=== PATIENT | female | born 1975 | race Caucasian/White ===

== ENCOUNTER 2018-09-05 09:14 | Observation (INO) | payer MEDICAID ==
[2018-08-30 09:50] LABS: ADD MAN DIFF? NO
[2018-08-30 09:51] LABS: BASOPHILS % 0.4 % (0.0-2.0); EOSINOPHILS # 0.1 10^3/ul (0.0-0.5); EOSINOPHILS % 1.6 % (0.0-7.0); HEMATOCRIT 40.9 % (37.0-47.0); HEMOGLOBIN 13.5 g/dl (12.0-16.0); LYMPHOCYTES % 29.3 % (15.0-51.0); MEAN CORPUSCULAR HEMOGLOBIN 28.7 pg (29.0-33.0); MEAN CORPUSCULAR VOLUME 86.8 fl (82.0-101.0); MEAN PLATELET VOLUME 10.7 fl (7.4-10.4); MONOCYTE # 0.7 10^3/ul (0.3-0.9); MONOCYTES % 9.5 % (0.0-11.0); NEUTROPHIL # 4.1 10^3/ul (1.6-7.5); NEUTROPHILS % 58.8 % (39.0-77.0); PLATELET COUNT 230 10^3/UL (140-415); RED BLOOD COUNT 4.71 10^6/ul (4.20-5.40); RED CELL DISTRIBUTION WIDTH 11.7 % (11.5-14.5)
[2018-08-30 09:51] LABS: WHITE BLOOD COUNT 6.9 10^3/ul (4.8-10.8)
[2018-08-30 10:11] LABS: INR 0.92; PROTIME 12.5 Sec (11.9-14.9)
[2018-08-30 10:12] LABS: PARTIAL THROMBOPLASTIN TIME 26.5 Sec (23.0-35.0)
[2018-08-30 10:30] LABS: ALANINE AMINOTRANSFERASE 22 IU/L (13-69); ALBUMIN 4.3 g/dl (3.3-4.9); ALBUMIN/GLOBULIN RATIO 1.34; ALKALINE PHOSPHATASE 63 IU/L (42-121); ANION GAP 8 (5-13); ASPARTATE AMINO TRANSFERASE 25 IU/L (15-46); BILIRUBIN,INDIRECT 0.3 mg/dl (0-1.1); BILIRUBIN,TOTAL 0.3 mg/dl (0.2-1.3); BLOOD UREA NITROGEN 15 mg/dl (7-20); CALCIUM 9.8 mg/dl (8.4-10.2); CARBON DIOXIDE 28 mmol/L (21-31); CHLORIDE 104 mmol/L (97-110); CREATININE 0.63 mg/dl (0.44-1.00); Estimated GFR > 60 mL/min (>60); GLUCOSE 106 mg/dl (70-220); POTASSIUM 4.7 mmol/L (3.5-5.1); SODIUM 140 mmol/L (135-144); TOTAL PROTEIN 7.5 g/dl (6.1-8.1)
[~2018-09-05 09:14] MED LIST: CEFAZOLIN 2 GM/50 ML (PMX) 50 ML IVPB
[2018-09-05 09:49] LABS: ADD MAN DIFF? NO
[2018-09-05 10:09] LABS: ALANINE AMINOTRANSFERASE 22 IU/L (13-69); ALBUMIN/GLOBULIN RATIO 1.42; ALKALINE PHOSPHATASE 89 IU/L (42-121); ANION GAP 12 (5-13); ASPARTATE AMINO TRANSFERASE 24 IU/L (15-46); BILIRUBIN,INDIRECT 0.7 mg/dl (0-1.1); BILIRUBIN,TOTAL 0.7 mg/dl (0.2-1.3); BLOOD UREA NITROGEN 16 mg/dl (7-20); CALCIUM 9.8 mg/dl (8.4-10.2); CARBON DIOXIDE 27 mmol/L (21-31); CHLORIDE 103 mmol/L (97-110); CREATININE 0.62 mg/dl (0.44-1.00); Estimated GFR > 60 mL/min (>60); GLUCOSE 117 mg/dl (70-220); POTASSIUM 3.8 mmol/L (3.5-5.1); SODIUM 142 mmol/L (135-144); TOTAL PROTEIN 8.5 g/dl (6.1-8.1)
[2018-09-05 10:16] LABS: INR 0.93; PROTIME 12.6 Sec (11.9-14.9)
[2018-09-05 10:17] LABS: PARTIAL THROMBOPLASTIN TIME 26.9 Sec (23.0-35.0)
[2018-09-05 10:28] LABS: WHITE BLOOD COUNT 8.1 10^3/ul (4.8-10.8)
[2018-09-05 10:28] LABS: BASOPHIL # 0.1 10^3/ul (0.0-0.1); BASOPHILS % 0.6 % (0.0-2.0); EOSINOPHILS # 0.1 10^3/ul (0.0-0.5); EOSINOPHILS % 1.6 % (0.0-7.0); HEMATOCRIT 44.2 % (37.0-47.0); HEMOGLOBIN 14.8 g/dl (12.0-16.0); LYMPHOCYTES # 2.2 10^3/ul (0.8-2.9); LYMPHOCYTES % 27.5 % (15.0-51.0); MEAN CORPUSCULAR HEMOGLOBIN 29.1 pg (29.0-33.0); MEAN CORPUSCULAR HGB CONC 33.5 g/dl (32.0-37.0); MEAN CORPUSCULAR VOLUME 86.8 fl (82.0-101.0); MEAN PLATELET VOLUME 11.4 fl (7.4-10.4); MONOCYTE # 0.8 10^3/ul (0.3-0.9); MONOCYTES % 9.6 % (0.0-11.0); NEUTROPHIL # 4.9 10^3/ul (1.6-7.5); NEUTROPHILS % 60.3 % (39.0-77.0); PLATELET COUNT 263 10^3/UL (140-415); RED BLOOD COUNT 5.09 10^6/ul (4.20-5.40); RED CELL DISTRIBUTION WIDTH 11.7 % (11.5-14.5)
[2018-09-05] MEDS ORDERED: CEFAZOLIN 1 GM INJ (11:57)
[2018-09-05] MEDS ORDERED: FENTAnyl 50 MCG/ML VIAL (11:57)
[2018-09-05] MEDS ORDERED: PROPOFOL 20 ML (11:57)
[2018-09-05] MEDS ORDERED: ROCURONIUM 50 MG INJ (11:57)
[2018-09-05] MEDS ORDERED: NEOSTIGMINE 3 MG/3 ML SYRINGE (11:57)
[2018-09-05] MEDS ORDERED: GLYCOPYRROLATE 0.4 MG INJ (11:57)
[2018-09-05] MEDS ORDERED: MIDAZOLAM 1 MG/ML 2 ML INJ (11:58)
[2018-09-05] MEDS: ISOSULFAN BLUE 1% 5 ML INJ SC (12:24)
[2018-09-05] MEDS ORDERED: DEXAMETHASONE 4 MG/ML 5 ML INJ (12:36)
[2018-09-05] MEDS ORDERED: METOCLOPRAMIDE 10 MG INJ (12:36)
[2018-09-05] MEDS ORDERED: ONDANSETRON 4 MG INJ (12:36)
[2018-09-05] MEDS ORDERED: EPHEDrine SULFATE 50 MG/5 ML SYG (12:36)
[2018-09-05] MEDS ORDERED: KETOROLAC 30 MG INJ (12:36)
[2018-09-05] MEDS: D5W-0.45 NACL + KCL 20 MEQ 1,000 ML IV (13:32)
[2018-09-05] MEDS ORDERED: HYDROCODONE/APAP (5/325) TAB PO (14:00)
[2018-09-05] MEDS ORDERED: ONDANSETRON 4 MG INJ IV (14:00)
[2018-09-05] MEDS: HYDROmorphONE 1 MG/ML SYG SC (15:42)
[2018-09-05] MEDS ORDERED: GLUCOSE GEL 15 GRAM TUBE PO ×2 (16:30)
[2018-09-05] MEDS ORDERED: GLUCOSE GEL 15 GRAM TUBE BUCCAL (16:30)
[2018-09-05] MEDS ORDERED: DEXTROSE 50% 50 ML SYRINGE IV ×2 (16:30)
[2018-09-05] MEDS ORDERED: GLUCAGON 1 MG INJ IM (16:30)
[2018-09-05] MEDS: INSULIN ASPART [NOVOLOG] 3 ML PEN SC ×2 (17:55→21:37)
[2018-09-05] MEDS: metFORMIN 500 MG TAB PO (18:02)
[2018-09-05] MEDS: LORAZEPAM 1 MG TAB PO (18:02)
[2018-09-06] MEDS: ACCU-CHEK XX (02:00)
[2018-09-06 05:40] LABS: ADD MAN DIFF? NO
[2018-09-06 05:52] LABS: BASOPHILS % 0.2 % (0.0-2.0); LYMPHOCYTES # 1.2 10^3/ul (0.8-2.9); LYMPHOCYTES % 9.4 % (15.0-51.0); MEAN CORPUSCULAR HEMOGLOBIN 29.5 pg (29.0-33.0); MEAN CORPUSCULAR HGB CONC 34.2 g/dl (32.0-37.0); MEAN CORPUSCULAR VOLUME 86.2 fl (82.0-101.0); MEAN PLATELET VOLUME 11.5 fl (7.4-10.4); MONOCYTE # 0.8 10^3/ul (0.3-0.9); MONOCYTES % 6.1 % (0.0-11.0); NEUTROPHIL # 10.5 10^3/ul (1.6-7.5); NEUTROPHILS % 83.7 % (39.0-77.0); PLATELET COUNT 234 10^3/UL (140-415); RED BLOOD COUNT 4.41 10^6/ul (4.20-5.40); RED CELL DISTRIBUTION WIDTH 11.8 % (11.5-14.5)
[2018-09-06 05:52] LABS: WHITE BLOOD COUNT 12.5 10^3/ul (4.8-10.8)
[2018-09-06 06:35] LABS: ALANINE AMINOTRANSFERASE 26 IU/L (13-69); ALBUMIN 4.2 g/dl (3.3-4.9); ALBUMIN/GLOBULIN RATIO 1.44; ALKALINE PHOSPHATASE 74 IU/L (42-121); ANION GAP 8 (5-13); ASPARTATE AMINO TRANSFERASE 20 IU/L (15-46); BILIRUBIN,INDIRECT 0.6 mg/dl (0-1.1); BILIRUBIN,TOTAL 0.6 mg/dl (0.2-1.3); BLOOD UREA NITROGEN 15 mg/dl (7-20); CALCIUM 9.8 mg/dl (8.4-10.2); CARBON DIOXIDE 24 mmol/L (21-31); CHLORIDE 103 mmol/L (97-110); CREATININE 0.61 mg/dl (0.44-1.00); Estimated GFR > 60 mL/min (>60); GLUCOSE 134 mg/dl (70-220); MAGNESIUM 1.8 mg/dl (1.7-2.5); PHOSPHORUS 4.4 mg/dl (2.5-4.9); POTASSIUM 4.4 mmol/L (3.5-5.1); SODIUM 135 mmol/L (135-144); TOTAL PROTEIN 7.1 g/dl (6.1-8.1)
[2018-09-06 08:35] LABS: THYROID STIMULATING HORMONE 0.902 MIU/L (0.465-4.680)
[2018-09-06 08:53] LABS: D-DIMER 335.76 ng/ml (<460)
[2018-09-06] MEDS: metFORMIN 500 MG TAB PO ×2 (09:23→17:59)
[2018-09-06] MEDS: AMLODIPINE 10 MG TAB PO (09:24)
[2018-09-06] MEDS: INSULIN ASPART [NOVOLOG] 3 ML PEN SC ×4 (09:24→21:00)
[2018-09-06] MEDS: LINAGLIPTIN 5 MG TABLET PO (09:24)
[2018-09-06] MEDS ORDERED: HYDROCODONE/APAP (10/325) TAB PO (11:30)
[2018-09-06] MEDS ORDERED: DOCUSATE SODIUM 100 MG CAP PO (11:30)
[2018-09-06] MEDS ORDERED: GUAIFENESIN/CODEINE 5ML CUP PO (11:30)
[2018-09-06] MEDS: ENOXAPARIN 40 MG/0.4 ML SYG SC (12:22)
[2018-09-07] MEDS: ACETAMINOPHEN 325 MG TAB PO ×2 (01:41→13:59)
[2018-09-07] MEDS: ACCU-CHEK XX (01:44)
[2018-09-07 04:59] LABS: ADD MAN DIFF? NO
[2018-09-07 05:02] LABS: BASOPHIL # 0.1 10^3/ul (0.0-0.1); BASOPHILS % 0.4 % (0.0-2.0); EOSINOPHILS # 0.2 10^3/ul (0.0-0.5); EOSINOPHILS % 1.6 % (0.0-7.0); HEMATOCRIT 37.2 % (37.0-47.0); HEMOGLOBIN 12.6 g/dl (12.0-16.0); LYMPHOCYTES # 3.5 10^3/ul (0.8-2.9); LYMPHOCYTES % 28.7 % (15.0-51.0); MEAN CORPUSCULAR HEMOGLOBIN 29.2 pg (29.0-33.0); MEAN CORPUSCULAR HGB CONC 33.9 g/dl (32.0-37.0); MEAN CORPUSCULAR VOLUME 86.3 fl (82.0-101.0); MEAN PLATELET VOLUME 11.3 fl (7.4-10.4); MONOCYTE # 1.1 10^3/ul (0.3-0.9); MONOCYTES % 9.3 % (0.0-11.0); NEUTROPHIL # 7.3 10^3/ul (1.6-7.5); NEUTROPHILS % 59.7 % (39.0-77.0); PLATELET COUNT 221 10^3/UL (140-415); RED BLOOD COUNT 4.31 10^6/ul (4.20-5.40)
[2018-09-07 05:02] LABS: WHITE BLOOD COUNT 12.3 10^3/ul (4.8-10.8)
[2018-09-07 05:21] LABS: ANION GAP 9 (5-13); BLOOD UREA NITROGEN 18 mg/dl (7-20); CALCIUM 9.5 mg/dl (8.4-10.2); CARBON DIOXIDE 25 mmol/L (21-31); CHLORIDE 105 mmol/L (97-110); CREATININE 0.57 mg/dl (0.44-1.00); Estimated GFR > 60 mL/min (>60); GLUCOSE 118 mg/dl (70-220); POTASSIUM 4.5 mmol/L (3.5-5.1); SODIUM 139 mmol/L (135-144)
[2018-09-07 05:37] LABS: PHOSPHORUS 3.7 mg/dl (2.5-4.9)
[2018-09-07 05:37] LABS: MAGNESIUM 1.8 mg/dl (1.7-2.5)
[2018-09-07 05:50] LABS: TROPONIN-I < 0.012 ng/ml (0.000-0.120)
[2018-09-07] MEDS: INSULIN ASPART [NOVOLOG] 3 ML PEN SC ×3 (07:50→17:55)
[2018-09-07] MEDS: metFORMIN 500 MG TAB PO ×2 (09:01→18:12)
[2018-09-07] MEDS: AMLODIPINE 10 MG TAB PO (09:01)
[2018-09-07] MEDS: LINAGLIPTIN 5 MG TABLET PO (09:01)
[2018-09-07] MEDS: ENOXAPARIN 40 MG/0.4 ML SYG SC (09:02)
[2018-09-07] MEDS: LORATADINE 10 MG TAB PO (11:51)
[2018-09-08] MEDS ORDERED: METOPROLOL (XL) 25 MG TAB PO (09:00)
== END 2018-09-07 19:15 | disposition home or self-care (01) ==
LOC: SDS 09:14 → MS1 09-06 08:16 → SDS 13:40 → REC 13:40 → MS1 15:16 → REC 15:16 → SDS 13:40 → MS1 14:06
DX: C50.912 Malignant neoplasm of unspecified site of left female breast (principal); R00.0 Tachycardia, unspecified; I10 Essential (primary) hypertension; E11.9 Type 2 diabetes mellitus without complications; E78.5 Hyperlipidemia, unspecified; Z79.4 Long term (current) use of insulin
CPT/HCPCS: 19301; 71045; 80048; 80053; 82962; 83735; 84100; 84439; 84443; 84484; 84703; 85025; 85378; 85610; 85730; 88307; 93005; 93306